=== PATIENT | male | born 1940 | race Caucasian/White ===

== ENCOUNTER → 2017-08-04 | Outpatient (CLI) | payer OTHER | LOC: M.RAD 11:50 | DX: J44.1 Chronic obstructive pulmonary disease with (acute) exacerbation (principal); J15.8 Pneumonia due to other specified bacteria ==

== ENCOUNTER 2018-05-04 10:38 | Emergency (ER) | payer OTHER, MEDICAID ==
[~2018-05-04] VITALS: Ht 162.6 cm; Wt 90.7 kg
[2018-05-04] MEDS ORDERED: KEFLEX500 M1 PO (11:42)
[2018-05-04] MEDS ORDERED: BACTRIM DS TAB1 EACH PO (11:42)
[2018-05-04] MEDS ORDERED: VENTOLIN HFA 1818 GM INH (11:42)
[2018-05-04] MEDS ORDERED: TESSALON PERLE100 MG PO (11:42)
[2018-05-04 13:03] VITALS: BP 167/85
== END 2018-05-04 13:04 | disposition home or self-care (01) ==
LOC: M.ERS 10:38
DX: L02.212 Cutaneous abscess of back [any part, except buttock and flank] (principal); J44.1 Chronic obstructive pulmonary disease with (acute) exacerbation

== ENCOUNTER 2018-07-14 06:41 | Emergency (ER) | payer OTHER ==
[~2018-07-14] VITALS: Ht 162.6 cm; Wt 92.5 kg
[~2018-07-14 06:41] MED LIST: BACTRIM DS TAB1 EACH PO; KEFLEX500 M1 PO; TESSALON PERLE100 MG PO; VENTOLIN HFA 1818 GM INH
[2018-07-14] MEDS ORDERED: ADVAIR HFA 230M12 GM INH (07:16)
[2018-07-14] MEDS ORDERED: HUMALOG100 UNIT/1 SUBQ (07:16)
[2018-07-14] MEDS ORDERED: FLONASE 0.05%50 MCG NASAL (07:16)
[2018-07-14] MEDS ORDERED: PROAIR HFA8.5 GM (07:16)
[2018-07-14] MEDS ORDERED: HYDROCODONE-AP1 EAC6 PO (08:15)
[2018-07-14 08:36] VITALS: BP 138/79
== END 2018-07-14 08:37 | disposition home or self-care (01) ==
LOC: M.ERS 06:41
DX: M13.852 Other specified arthritis, left hip (principal); N40.0 Benign prostatic hyperplasia without lower urinary tract symptoms; J44.9 Chronic obstructive pulmonary disease, unspecified; I10 Essential (primary) hypertension; E11.9 Type 2 diabetes mellitus without complications; Z87.01 Personal history of pneumonia (recurrent); Z90.49 Acquired absence of other specified parts of digestive tract; Z87.891 Personal history of nicotine dependence; Z88.8 Allergy status to other drugs, medicaments and biological substances

== ENCOUNTER 2019-01-27 18:50 | Emergency (ER) | payer OTHER ==
[~2019-01-27] VITALS: Ht 162.6 cm; Wt 92.5 kg
[~2019-01-27 18:50] MED LIST changes: +ADVAIR HFA 230M12 GM INH; +FLONASE 0.05%50 MCG NASAL; +HUMALOG100 UNIT/1 SUBQ; +HYDROCODONE-AP1 EAC6 PO; +PROAIR HFA8.5 GM
[2019-01-27] MEDS ORDERED: LANTUS100 UNIT/M SUBQ (19:04)
[2019-01-27] MEDS ORDERED: PREDNISONE 20 M20 M1 PO (20:28)
[2019-01-27] MEDS ORDERED: NORCO 7.5-3251 EACH PO (20:28)
[2019-01-27 20:50] VITALS: BP 179/99
== END 2019-01-27 20:54 | disposition home or self-care (01) ==
LOC: M.ERS 18:50
DX: M54.41 Lumbago with sciatica, right side (principal); N40.0 Benign prostatic hyperplasia without lower urinary tract symptoms; J44.9 Chronic obstructive pulmonary disease, unspecified; I10 Essential (primary) hypertension; E11.9 Type 2 diabetes mellitus without complications; Z79.4 Long term (current) use of insulin; Z87.891 Personal history of nicotine dependence; Z88.8 Allergy status to other drugs, medicaments and biological substances; Z90.49 Acquired absence of other specified parts of digestive tract

== ENCOUNTER 2019-07-16 09:11 | Emergency (ER) | payer OTHER ==
[~2019-07-16] VITALS: Ht 162.6 cm; Wt 90.7 kg
[~2019-07-16 09:11] MED LIST changes: +LANTUS100 UNIT/M SUBQ; +NORCO 7.5-3251 EACH PO; +PREDNISONE 20 M20 M1 PO
[2019-07-16] MEDS ORDERED: TRULICITY0.75 MG/0. (09:29)
[2019-07-16] MEDS ORDERED: PREDNISONE 20 M20 M1 PO (10:18)
[2019-07-16 10:52] VITALS: BP 149/75
== END 2019-07-16 10:53 | disposition home or self-care (01) ==
LOC: M.ERS 09:11
DX: M54.5 Low back pain (principal); G89.29 Other chronic pain; I10 Essential (primary) hypertension; E11.9 Type 2 diabetes mellitus without complications; J44.9 Chronic obstructive pulmonary disease, unspecified; Z90.49 Acquired absence of other specified parts of digestive tract; Z79.4 Long term (current) use of insulin; Z87.891 Personal history of nicotine dependence; Z88.8 Allergy status to other drugs, medicaments and biological substances

== ENCOUNTER 2020-03-19 08:58 | Emergency (ER) | payer OTHER, MEDICAID ==
[~2020-03-19] VITALS: Ht 162.6 cm; Wt 86.6 kg
[~2020-03-19 08:58] MED LIST changes: +TRULICITY0.75 MG/0.
[2020-03-19 09:37] LABS: ABSOLUTE BASOPHILS 0.1 thou/uL (0.0-0.2); ABSOLUTE EOSINOPHILS 0.1 thou/uL (0.0-0.7); ABSOLUTE LYMPHOCYTES 1.1 thou/uL (0.8-5.3); ABSOLUTE MONOCYTES 0.7 thou/uL (0.0-1.2); ABSOLUTE NEUTROPHILS 8.1 thou/uL (1.6-8.1); BASOPHILS 0.8 %; EOSINOPHILS 0.8 %; LYMPHOCYTES 11.2 %; MCH 30.2 pg (26.0-34.0); MCV 88.7 fL (80.0-100.0); MONOCYTES 7.2 %; MPV 8.2 fl. (7.2-11.1); NUCLEATED RBCS 0 /100WBC; PLATELET COUNT* 224 thou/uL (150-400); RBC 5.64 mil/uL (4.50-6.00); RDW-CV 13.6 % (10.5-14.5); WBC 10.1 thou/uL (4.0-11.0)
[2020-03-19 09:47] LABS: CALCIUM 8.5 mg/dL (8.5-10.1); CREATININE 1.4 mg/dL (0.6-1.3); POTASSIUM 3.9 mmol/L (3.5-5.1)
[2020-03-19 09:49] LABS: APTT 28.3 Seconds (25.0-31.3); PROTIME 10.9 Seconds (9.20-11.50)
[2020-03-19] MEDS ORDERED: PREDNISONE 20 M20 M1 PO (09:57)
[2020-03-19] MEDS ORDERED: NORCO 5-325 TA1 EAC2 PO (09:57)
[2020-03-19 09:58] LABS: ALBUMIN 3.3 g/dL (3.4-5.0); TOTAL PROTEIN 7.1 g/dL (6.4-8.2)
[2020-03-19 11:04] VITALS: BP 190/104
--- NOTE | 2020-03-19 11:37 | EKG ---
[place] [address] ELECTROCARDIOGRAM REPORT Name: NAILA MATOS Room: 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: [facility] : 1940 Requested By: Alfonso Mohan Order Number: [id number] MD: Madan Bennett Measurements Intervals [place] Rate: 93 P: 3 NH: 207 QRS: -91 QRSD: 127 T: 59 QT: 386 QTc: 481 Interpretive Statements Sinus rhythm Atrial premature complex Borderline prolonged NH interval Right bundle branch block Inferior infarct, old Baseline wander in lead(s) V5 No previous ECG available for comparison Electronically Signed On 03-19-2020 11:36:58 MULTI SLIDE MACHINE TENDER by Madan Bennett [email or web address] <ELECTRONICALLY SIGNED> By: Madan Bennett MD, [facility] 03/19/20 1136 7 7 Madan Bennett MD, [facility] /EPI
== END 2020-03-19 11:07 | disposition home or self-care (01) ==
LOC: M.ERS 08:58
PROVIDERS: Family Medicine
DX: G89.29 Other chronic pain (principal); M25.512 Pain in left shoulder; M54.2 Cervicalgia; I10 Essential (primary) hypertension; E11.9 Type 2 diabetes mellitus without complications; J44.9 Chronic obstructive pulmonary disease, unspecified; Z87.01 Personal history of pneumonia (recurrent); Z87.891 Personal history of nicotine dependence; Z88.6 Allergy status to analgesic agent; Z90.49 Acquired absence of other specified parts of digestive tract

== ENCOUNTER 2020-05-11 12:48 | Inpatient (IN) | payer OTHER, MEDICAID ==
[~2020-05-11] VITALS: Ht 154.9 cm; Wt 87.9 kg
[~2020-05-11 12:48] MED LIST changes: +NORCO 5-325 TA1 EAC2 PO
[2020-05-11 12:58] VITALS: BP 158/104
[2020-05-11 13:34] LABS: ABSOLUTE BASOPHILS 0.1 thou/uL (0.0-0.2); ABSOLUTE EOSINOPHILS 0.1 thou/uL (0.0-0.7); ABSOLUTE LYMPHOCYTES 1.1 thou/uL (0.8-5.3); ABSOLUTE NEUTROPHILS 8.2 thou/uL (1.6-8.1); BASOPHILS 0.7 %; EOSINOPHILS 1.2 %; HEMATOCRIT 48.6 % (42.0-52.0); HEMOGLOBIN 16.3 gm/dL (14.0-18.0); LYMPHOCYTES 10.9 %; MCH 29.7 pg (26.0-34.0); MCHC 33.6 g/dL (28.0-37.0); MCV 88.3 fL (80.0-100.0); MONOCYTES 9.2 %; MPV 8.7 fl. (7.2-11.1); NUCLEATED RBCS 0 /100WBC; PLATELET COUNT* 200 thou/uL (150-400); RDW-CV 13.6 % (10.5-14.5); WBC 10.6 thou/uL (4.0-11.0)
[2020-05-11 13:46] LABS: CALCIUM 8.9 mg/dL (8.5-10.1); CREATININE 1.9 mg/dL (0.6-1.3)
[2020-05-11 13:51] LABS: ALBUMIN 3.3 g/dL (3.4-5.0); TOTAL BILIRUBIN 0.9 mg/dL (<0.1-1.0); TOTAL PROTEIN 6.6 g/dL (6.4-8.2)
[2020-05-11 13:52] LABS: PROTIME 10.4 Seconds (9.20-11.50)
[2020-05-11 16:38] VITALS: BP 198/107
[2020-05-11] MEDS ORDERED: GABAPENTIN600 M1 PO (17:15)
[2020-05-11] MEDS ORDERED: FLOMAX0.4 MG PO (17:16)
[2020-05-11] MEDS ORDERED: LISINOPRIL40 MG PO (17:17)
[2020-05-11] MEDS ORDERED: FLEXERIL PO (17:18)
[2020-05-11] MEDS ORDERED: NORVASC10 MG PO (17:20)
[2020-05-11] MEDS ORDERED: NORCO 5-325 TA1 EAC2 PO (17:21)
[2020-05-11] MEDS ORDERED: LANTUS SUBQ (17:26)
[2020-05-11 17:35] VITALS: BP 189/111
[2020-05-11 20:55] VITALS: BP 169/104
[2020-05-12] VITALS: BP 164/90
[2020-05-12 04:00] VITALS: BP 157/90
[2020-05-12 04:19] LABS: ABSOLUTE BASOPHILS 0.1 thou/uL (0.0-0.2); ABSOLUTE EOSINOPHILS 0.2 thou/uL (0.0-0.7); ABSOLUTE LYMPHOCYTES 1.4 thou/uL (0.8-5.3); ABSOLUTE MONOCYTES 0.9 thou/uL (0.0-1.2); ABSOLUTE NEUTROPHILS 8.1 thou/uL (1.6-8.1); BASOPHILS 0.7 %; EOSINOPHILS 1.7 %; HEMATOCRIT 44.2 % (42.0-52.0); HEMOGLOBIN 14.9 gm/dL (14.0-18.0); LYMPHOCYTES 12.9 %; MCH 29.9 pg (26.0-34.0); MCHC 33.7 g/dL (28.0-37.0); MCV 88.8 fL (80.0-100.0); MONOCYTES 8.3 %; MPV 8.9 fl. (7.2-11.1); NUCLEATED RBCS 0 /100WBC; PLATELET COUNT* 186 thou/uL (150-400); POLYS 76.4 %; RBC 4.97 mil/uL (4.50-6.00); RDW-CV 13.5 % (10.5-14.5); WBC 10.7 thou/uL (4.0-11.0)
[2020-05-12 04:28] LABS: CALCIUM 8.7 mg/dL (8.5-10.1); CREATININE 1.7 mg/dL (0.6-1.3); POTASSIUM 3.9 mmol/L (3.5-5.1)
[2020-05-12 04:59] LABS: CHOLESTEROL 157 mg/dL (<200); HDL CHOLESTEROL 28 mg/dL (>40); LDL CHOLESTEROL 100 mg/dL (<100); TC:HDL 5.6 Ratio (Not establshd); TRIGLYCERIDE 148 mg/dL (<150); VLDL 30 mg/dL (<40)
[2020-05-12 05:00] LABS: SERUM ASSESSMENT CLEAR
[2020-05-12 06:04] LABS: ESR (SEDRATE) 5 mm/hr (0-20)
[2020-05-12 08:42] VITALS: BP 166/105
[2020-05-12 11:46] VITALS: BP 96/75
--- NOTE | 2020-05-12 14:24 | 2DMMODE ---
[place] [address] 2 D/M-MODE ECHOCARDIOGRAM Name: NAILA MATOS Room: [address] IN [facility]#: [id number] Admission: 05/11/20 Attend Phys: Shree Altman, Discharge: Date of : 36 Date of Service: 05/12/20 1424 Report #: [id number] THIS REPORT FOR: cc: Allan Tucker Steven D. DO Holkins,Attila De La Paz MD [facility] ~ APPROVED REPORT Study performed: 05/12/2020 10:34:28 EXAM: Comprehensive 2D, Doppler, and color-flow Echocardiogram Patient Location: In-Patient Room #: [facility] Status: routine BSA: 1.85 HR: 84 bpm BP: 166/105 mmHg Rhythm: NSR Other Information Study Quality: Good Indications CVA/TIA Echo Enhancing Agent Indication: Rule out Shunt Agent(s) / Amount(s) Used: Agitated Saline 10 cc 2D Dimensions IVSd: 11.46 (7-11mm) LVOT Diam: 21.09 (18-24mm) LVDd: 39.89 mm PWd: 12.56 (7-11mm) Ascending Ao: 35.98 (22-36mm) LVDs: 24.02 (25-40mm) Aortic Root: 32.07 mm Volumes Left Atrial Volume (Systole) LA ESV Index: 27.60 mL/m2 Aortic Valve AoV Peak Johnathan.: 1.25 m/s AO Peak Gr.: 6.30 mmHg LVOT Max P.83 mmHg AO Mean Gr.: 3.68 mmHg LVOT Mean P[place]34 [place] [address] 2 D/M-MODE ECHOCARDIOGRAM Name: NAILA MATOS Room: [address] .R.#: [id number] Admission: 05/11/20 Attend Phys: Shree Altman, Discharge: Date of : 36 Date of Service: 05/12/20 1424 Report #: [id number] LVOT Max V: 0.84 m/s AO V2 VTI: 20.94 cm LVOT Mean V: 0.53 m/s RICHARDSON (VTI): 2.59 cm2 LVOT V1 VTI: 15.53 cm Mitral Valve E/A Ratio: 0.54 MV Decel. Time: 268.69 ms MV E Max Johnathan.: 0.60 m/s MV PHT: 77.92 ms MVA (PHT): 2.82 cm2 TDI E/Lateral E': 8.57 E/Medial E': 10.00 Medial E' Johnathan.: 0.06 m/s Lateral E' Johnathan.: 0.07 m/s Pulmonary Valve PV Peak Johnathan.: 0.78 m/s PV Peak Gr.: 2.45 mmHg Left Ventricle The left ventricle is normal size. There is normal LV segmental wall motion. Mild concentric left ventricular hypertrophy. Left ventricular systolic function is normal. The left ventricular ejection fraction is within the normal range. LVEF is 65%. Grade I - abnormal relaxation pattern. Right Ventricle The right ventricle is normal size. The right ventricular systolic function is normal. Atria The left atrium size is normal. The interatrial septum is intact with no evidence for an atrial septal defect. The right atrium size is normal. Aortic Valve Mild aortic valve sclerosis. No aortic regurgitation is present. There is no aortic valvular stenosis. Mitral Valve The mitral valve is normal in structure. There is no mitral valve regurgitation noted. No evidence of mitral valve stenosis. Tricuspid Valve The tricuspid valve is normal in structure. There is no tricuspid [place] [address] 2 D/M-MODE ECHOCARDIOGRAM Name: NAILA MATOS Room: [address] [place] ..#: [id number] Admission: 05/11/20 Attend Phys: Shree Altman, Discharge: Date of : 36 Date of Service: 05/12/20 1424 Report #: [id number] Pulmonic Valve The pulmonary valve is normal in structure. There is no pulmonic valvular regurgitation. Great Vessels The aortic root is normal in size. IVC is normal in size and collapses >50% with inspiration. Pericardium There is no pericardial effusion. <Conclusion> The left ventricle is normal size. Mild concentric left ventricular hypertrophy. Left ventricular systolic function is normal. The left ventricular ejection fraction is within the normal range. LVEF is 65%. Grade I - abnormal relaxation pattern. The right ventricle is normal size. The left atrium size is normal. Mild aortic valve sclerosis. No aortic regurgitation is present. There is no aortic valvular stenosis. The mitral valve is normal in structure. The tricuspid valve is normal in structure. IVC is normal in size and collapses >50% with inspiration. There is no pericardial effusion. There is normal LV segmental wall motion. The interatrial septum is intact with no evidence for an atrial septal defect. <ELECTRONICALLY SIGNED> By: Attila Layne MD, FACC 05/12/20 1424 1424 1424 Attila Layne MD, FACC /INF
--- NOTE | 2020-05-12 15:10 | EKG ---
[place] [address] ELECTROCARDIOGRAM REPORT Name: NAILA MATOS Room: [address] ADM IN ..#: [id number] Admission: 05/11/20 Attend Phys: Shree Altman, Discharge: Date of : 36 Date of Service: 05/11/20 1330 Report #: [id number] THIS REPORT FOR: //name// [facility] ED Test Date: 2020-05-11 Test Time: 13:30:42 Pat Name: NAILA MATOS Department: Room: [facility] Gender: M Painting Technician: : 1940 Requested By: Alfonso Mohan Order Number: [id number] MD: Attila Layne Measurements Intervals [place] Rate: 89 P: 22 OR: 54 QRS: -87 QRSD: 124 T: 43 QT: 378 QTc: 460 Interpretive Statements Sinus rhythm Short OR interval Right bundle branch block Inferior infarct, old Borderline ST elevation, anterior leads Baseline wander in lead(s) II Compared to ECG 03/19/2020 09:18:08 Short OR interval now present ST (T wave) deviation now present Atrial premature complex(es) no longer present Myocardial infarct finding still present Electronically Signed On 05-12-2020 15:10:37 AUTO HEADLIGHT MECHANIC by Attila Layne [email or web address] <ELECTRONICALLY SIGNED> By: Attila Layne MD, [facility] 05/12/20 1510 29 29 Attila Layne MD, [facility] /EPI
[2020-05-12 16:45] VITALS: BP 94/67
[2020-05-12 20:00] VITALS: BP 106/66
[2020-05-12 22:06] LABS: GLYCOHEMOGLOBIN (HGB A1C) 7.8 % (4.8-5.6)
[2020-05-12 22:06] LABS: GLYCOHEMOGLOBIN (HGB A1C) 7.9 % (4.8-5.6)
[2020-05-13] VITALS (7 sets, daily range): BP systolic 97–148; BP diastolic 5–80
[2020-05-14 04:38] VITALS: BP 123/73
[2020-05-14 08:00] VITALS: BP 131/78
[2020-05-14] MEDS ORDERED: ENOXAPARIN30 MG/0.1 SUBQ (08:11)
[2020-05-14] MEDS ORDERED: CYMBALTA30 MG PO (08:11)
[2020-05-14] MEDS ORDERED: DEXAMETHASONE 44 M1 PO (08:11)
[2020-05-14] MEDS ORDERED: ASA81BEC PO (08:11)
[2020-05-14] MEDS ORDERED: VANCO 500500 MG/100 IV (08:11)
[2020-05-14] MEDS ORDERED: NEURONTIN 300M300 M2 PO (08:11)
[2020-05-14 09:33] VITALS: BP 131/78
== END 2020-05-14 13:08 | disposition short-term general hospital (02) | DRG 551 ==
LOC: M.ERS 12:48 → M.TBA-ER 15:24 → M.2W 15:24
PROVIDERS: Family Medicine; Psychiatry & Neurology Neurology; ADMIT Internal Medicine; ATTEND Internal Medicine
DX: M47.892 Other spondylosis, cervical region (principal); N17.0 Acute kidney failure with tubular necrosis; G45.9 Transient cerebral ischemic attack, unspecified; L03.116 Cellulitis of left lower limb; M48.02 Spinal stenosis, cervical region; E11.622 Type 2 diabetes mellitus with other skin ulcer; L98.499 Non-pressure chronic ulcer of skin of other sites with unspecified severity; J44.9 Chronic obstructive pulmonary disease, unspecified; E11.42 Type 2 diabetes mellitus with diabetic polyneuropathy; E11.22 Type 2 diabetes mellitus with diabetic chronic kidney disease; N18.9 Chronic kidney disease, unspecified; M50.221 Other cervical disc displacement at C4-C5 level; N40.0 Benign prostatic hyperplasia without lower urinary tract symptoms; I12.9 Hypertensive chronic kidney disease with stage 1 through stage 4 chronic kidney disease, or unspecified chronic kidney disease; Z20.828 Contact with and (suspected) exposure to other viral communicable diseases; Z90.49 Acquired absence of other specified parts of digestive tract; Z88.8 Allergy status to other drugs, medicaments and biological substances; Z79.4 Long term (current) use of insulin; Z79.899 Other long term (current) drug therapy; Z87.891 Personal history of nicotine dependence

== ENCOUNTER → 2020-05-21 | Outpatient (CLI) | payer OTHER, MEDICAID ==
[~2020-05-21] MED LIST changes: +ASA81BEC PO; +CYMBALTA30 MG PO; +DEXAMETHASONE 44 M1 PO; +ENOXAPARIN30 MG/0.1 SUBQ; +FLEXERIL PO; +FLOMAX0.4 MG PO; +GABAPENTIN600 M1 PO; +LANTUS SUBQ; +LISINOPRIL40 MG PO; +NEURONTIN 300M300 M2 PO; +NORVASC10 MG PO; +VANCO 500500 MG/100 IV
== END ==
LOC: M.WC 13:58
PROVIDERS: ATTEND Podiatrist Foot & Ankle Surgery
DX: E11.622 Type 2 diabetes mellitus with other skin ulcer (principal); L89.893 Pressure ulcer of other site, stage 3; L97.822 Non-pressure chronic ulcer of other part of left lower leg with fat layer exposed; L03.116 Cellulitis of left lower limb; E11.40 Type 2 diabetes mellitus with diabetic neuropathy, unspecified; H54.7 Unspecified visual loss; I87.2 Venous insufficiency (chronic) (peripheral); I10 Essential (primary) hypertension; Z79.4 Long term (current) use of insulin; Z79.82 Long term (current) use of aspirin; Z87.891 Personal history of nicotine dependence

== ENCOUNTER → 2020-05-28 | Outpatient (CLI) | payer OTHER, MEDICAID | LOC: M.WC 14:00 | PROVIDERS: ATTEND Podiatrist Foot & Ankle Surgery | DX: E11.622 Type 2 diabetes mellitus with other skin ulcer (principal); L89.893 Pressure ulcer of other site, stage 3; L97.822 Non-pressure chronic ulcer of other part of left lower leg with fat layer exposed; L03.116 Cellulitis of left lower limb; B95.61 Methicillin susceptible Staphylococcus aureus infection as the cause of diseases classified elsewhere; E11.40 Type 2 diabetes mellitus with diabetic neuropathy, unspecified; H54.7 Unspecified visual loss; I87.2 Venous insufficiency (chronic) (peripheral); I10 Essential (primary) hypertension; Z79.4 Long term (current) use of insulin; Z79.82 Long term (current) use of aspirin; Z87.891 Personal history of nicotine dependence ==

== ENCOUNTER 2020-06-04 15:06 | Emergency (ER) | payer OTHER, MEDICAID ==
[~2020-06-04] VITALS: Ht 162.6 cm; Wt 90.7 kg
[2020-06-04 16:11] LABS: ABSOLUTE BASOPHILS 0.1 thou/uL (0.0-0.2); ABSOLUTE EOSINOPHILS 0.1 thou/uL (0.0-0.7); ABSOLUTE LYMPHOCYTES 1.2 thou/uL (0.8-5.3); ABSOLUTE MONOCYTES 0.7 thou/uL (0.0-1.2); ABSOLUTE NEUTROPHILS 5.5 thou/uL (1.6-8.1); BASOPHILS 0.9 %; EOSINOPHILS 1.4 %; HEMATOCRIT 46.1 % (42.0-52.0); LYMPHOCYTES 16.5 %; MCH 29.6 pg (26.0-34.0); MCHC 32.6 g/dL (28.0-37.0); MCV 90.6 fL (80.0-100.0); MONOCYTES 8.7 %; MPV 8.7 fl. (7.2-11.1); NUCLEATED RBCS 0 /100WBC; PLATELET COUNT* 213 thou/uL (150-400); POLYS 72.5 %; RBC 5.09 mil/uL (4.50-6.00); RDW-CV 14.1 % (10.5-14.5); WBC 7.6 thou/uL (4.0-11.0)
[2020-06-04 16:23] LABS: CALCIUM 9.1 mg/dL (8.5-10.1); CREATININE 1.8 mg/dL (0.6-1.3); POTASSIUM 4.3 mmol/L (3.5-5.1)
[2020-06-04 16:28] LABS: ALBUMIN 3.4 g/dL (3.4-5.0); TOTAL BILIRUBIN 0.5 mg/dL (<0.1-1.0); TOTAL PROTEIN 6.4 g/dL (6.4-8.2)
[2020-06-04 19:54] VITALS: BP 119/69
== END 2020-06-04 19:55 | disposition short-term general hospital (02) ==
LOC: M.ERS 15:06
PROVIDERS: Nurse Practitioner Family
DX: G72.89 Other specified myopathies (principal); R53.1 Weakness; Z20.828 Contact with and (suspected) exposure to other viral communicable diseases; N40.0 Benign prostatic hyperplasia without lower urinary tract symptoms; J44.9 Chronic obstructive pulmonary disease, unspecified; E11.9 Type 2 diabetes mellitus without complications; I10 Essential (primary) hypertension; Z87.01 Personal history of pneumonia (recurrent); Z87.891 Personal history of nicotine dependence; Z90.49 Acquired absence of other specified parts of digestive tract; Z88.6 Allergy status to analgesic agent

== ENCOUNTER → 2020-06-04 | Outpatient (CLI) | payer OTHER, MEDICAID | LOC: M.WC 13:40 | PROVIDERS: ATTEND Podiatrist Foot & Ankle Surgery | DX: E11.622 Type 2 diabetes mellitus with other skin ulcer (principal); L89.893 Pressure ulcer of other site, stage 3; L97.822 Non-pressure chronic ulcer of other part of left lower leg with fat layer exposed; L03.116 Cellulitis of left lower limb; B95.61 Methicillin susceptible Staphylococcus aureus infection as the cause of diseases classified elsewhere; E11.40 Type 2 diabetes mellitus with diabetic neuropathy, unspecified; H54.7 Unspecified visual loss; I87.2 Venous insufficiency (chronic) (peripheral); I10 Essential (primary) hypertension; Z87.891 Personal history of nicotine dependence ==